=== PATIENT | male | born 1965 | race Caucasian/White ===

== ENCOUNTER 2023-09-19 08:00 | Outpatient (CLI) | payer BC ==
--- NOTE | 2023-09-21 07:16 | XRAY Report ---
PROCEDURE: Chest 2V INDICATIONS: HYPOXIA/TACHYCARDIA/COUGH TECHNIQUE: 2 views of the chest were acquired. COMPARISON: None. FINDINGS: Surgical changes and devices: None. Lungs and pleura: Bibasilar and likely lingula and middle lobe consolidations. No drainable effusion s. These are confirmed on lateral view. Mediastinum: Normal heart size Bones and chest wall: Degenerative changes IMPRESSION: Lower lung, middle lobe, and lingular consolidation suspicious for pneumonia. Consider future imaging surveillance to assess for resolution. This was marked in PACS as a result for follow-up. Reviewed by: Trenton Colin MD on 09/21/2023 7:15 AM PDT Approved by: Trenton Colin MD on 09/21/2023 7:15 AM PDT Station ID: [id number]
== END 2023-09-19 23:59 | disposition home or self-care (01) ==
LOC: DI.S 08:00
PROVIDERS: ATTEND Registered Nurse
DX: R91.8 Other nonspecific abnormal finding of lung field (principal)

== ENCOUNTER 2023-10-02 14:09 | Outpatient (CLI) | payer BC ==
--- NOTE | 2023-10-02 14:30 | XRAY Report ---
PROCEDURE: Chest 2V INDICATIONS: COMMUNITY ACQUIRED PNEUMONIA TECHNIQUE: 2 views of the chest were acquired. COMPARISON: 09/19/2023. FINDINGS: Surgical changes and devices: None. Lungs and pleura: No pleural effusions or pneumothorax. Lungs are clear. Mediastinum: Mediastinal contours appear normal. Heart size is normal. Bones and chest wall: No suspicious bony lesions. Overlying soft tissues appear unremarkable. IMPRESSION: No acute cardiopulmonary process. Reviewed by: Carl Quesada MD on 10/02/2023 2:29 PM PDT Approved by: Carl Quesada MD on 10/02/2023 2:29 PM PDT Station ID: [id number]
== END 2023-10-02 23:59 | disposition home or self-care (01) ==
LOC: DI.S 14:09
PROVIDERS: ATTEND Physician Assistant Medical
DX: Z09 Encounter for follow-up examination after completed treatment for conditions other than malignant neoplasm (principal); Z87.01 Personal history of pneumonia (recurrent)